=== PATIENT | male | born 1980 | race African-American/Black ===

== ENCOUNTER 2019-12-12 01:08 | Emergency (ER) | payer MEDICAID, OTHER ==
[~2019-12-12] VITALS: Ht 182.9 cm; Wt 90.7 kg
[2019-12-12 01:16] VITALS: BP 140/87
--- NOTE | 2019-12-12 01:17 | NUR ---
ED Nurse Note: walked in to ed c/o mid abd pain onset 3 days ago after eating salmon. states emesis x2 today. denies fever or chills. denies diarrhea. vss, nad, aaox4, ambulatory
[2019-12-12] MEDS ORDERED: Lidocaine 2% Visc 15ml soln ORAL ONE (01:30)
[2019-12-12] MEDS ORDERED: Ketorolac 30mg Inj IV ONE (01:30)
[2019-12-12] MEDS ORDERED: Mylanta II UD 30ml ORAL ONE (01:30)
[2019-12-12] MEDS ORDERED: Dicyclomine HCl 10mg/5ml oral soln ORAL ONE (01:30)
[2019-12-12 01:56] LABS: BILIRUBIN, URINE NEGATIVE (NEGATIVE); GLUCOSE, URINE (UA) NEGATIVE (NEGATIVE); KETONES,URINE NEGATIVE (NEGATIVE); LEUKOCYTE ESTERASE ,URINE 2+ (NEGATIVE); NITRITE,URINE NEGATIVE (NEGATIVE); PH,URINE 6 (4.5-8.0); PROTEIN,URINE 1+ (NEGATIVE); UROBILINOGEN,URINE 1 MG/DL (0.0-1.0)
[2019-12-12 01:57] LABS: BASOPHILS % (AUTO) 1.7 % (0.0-2.0); EOSINOPHILS % (AUTO) 1.5 % (0.0-3.0); HEMATOCRIT 47.4 % (42.0-52.0); HEMOGLOBIN 16.7 G/DL (14.2-18.0); LYMPHOCYTES % (AUTO) 36.7 % (20.0-45.0); MEAN CORPUSCULAR VOLUME 92 FL (80-99); MONOCYTES % (AUTO) 8.7 % (1.0-10.0); NEUTROPHILS % (AUTO) 51.4 % (45.0-75.0); PLATELET COUNT 270 K/UL (150-450); RED BLOOD COUNT 5.14 M/UL (4.70-6.10); RED CELL DISTRIBUTION WIDTH 12.4 % (11.6-14.8); WHITE BLOOD COUNT 12.1 K/UL (4.8-10.8)
[2019-12-12 02:08] LABS: ANION GAP 7 mmol/L (5-15); BLOOD UREA NITROGEN 12 mg/dL (7-18); CARBON DIOXIDE 29 MMOL/L (21-32); CHLORIDE 98 MMOL/L (98-107); COLOR,URINE YELLOW; CREATININE 1.3 MG/DL (0.55-1.30); POTASSIUM 3.3 MMOL/L (3.5-5.1); SODIUM 134 MMOL/L (136-145)
[2019-12-12 02:09] LABS: APPEARANCE,URINE SLIGHTLY CLOUDY
[2019-12-12 02:12] LABS: ALANINE AMINOTRANSFERASE 24 U/L (12-78); ALBUMIN/GLOBULIN RATIO 1.1 (1.0-2.7); ALKALINE PHOSPHATASE 46 U/L (46-116); ASPARTATE AMINO TRANSFERASE 18 U/L (15-37); BILIRUBIN,TOTAL 0.5 MG/DL (0.2-1.0)
[2019-12-12] MEDS ORDERED: cefTRIAXone 1 GM in NS 55 ML IVPB ONE (02:45)
--- NOTE | 2019-12-12 02:45 | NUR ---
ED Nurse Note: Patient tolerating IV antibiotics well, will continue to monitor. Per patient request additional blanket rendered.
[2019-12-12] MEDS ORDERED: Morphine Sulfate 4mg/ml Inj (IV USE ONLY) IVP ONE (03:30)
[2019-12-12] MEDS ORDERED: FAMOTIDINE20 MG ORAL (04:11)
[2019-12-12] MEDS ORDERED: ACETAMINOPHEN-1 EAC1 ORAL (04:11)
[2019-12-12] MEDS ORDERED: CEPHALEXIN500 MG ORAL (04:11)
[2019-12-12 04:18] VITALS: BP 140/87
--- NOTE | 2019-12-12 04:18 | NUR ---
ER DISCHARGE NOTE: Patient is cleared to be discharged per ERMD, pt is aox4, on room air, with stable vital signs. pt was given dc and prescription instructions, pt was able to verbalize understanding, pt id band and iv site removed without complications. pt is able to ambulate with steady gait. pt took all belongings and departed to home via his girlfriend who is waiting in the lobby.
--- NOTE | 2019-12-12 05:05 | Emergency Room Report ---
History of Present Illness General Chief Complaint: Abdominal Pain Source: Patient Present Illness HPI 39-year-old male presents to ED complaining of abdominal pain and vomiting. Started 2 days ago. Pain is epigastric, dull, 7 out of 10, nonradiating. Notes nausea and vomiting. Denies diarrhea. Denies fevers or chills. No other aggravating relieving factors. Denies any other associated symptoms 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-19 Testing performed LUMBER STACKER: No Patient History Past Medical History: none Past Surgical History: none Pertinent Family History: none Social History: Denies: smoking, alcohol use, drug use Immunizations: UTD Reviewed Nursing Documentation: PMH: Agreed; PSxH: Agreed Nursing Documentation-PMH Past Medical History: No Stated History Review of Systems All Other Systems: negative except mentioned in HPI Physical Exam Vital Signs Date Time Temp Pulse Resp B/P (MAP) Pulse Ox O2 Delivery O2 Flow Rate FiO2 12/12/19 01:12 97.7 60 20 140/87 (104) 99 Room Air 12/12/19 01:16 99 Sp02 EP Interpretation: reviewed, normal General Appearance: no apparent distress, alert, GCS 15, non-toxic Head: normocephalic, atraumatic Eyes: bilateral eye normal inspection, bilateral eye PERRL ENT: hearing grossly normal, normal pharynx, no angioedema, normal voice Neck: full range of motion, supple/symm/no masses Respiratory: chest non-tender, lungs clear, normal breath sounds, speaking full sentences Cardiovascular #1: regular rate, rhythm, no edema Cardiovascular #2: 2+ carotid (R), 2+ carotid (L), 2+ radial (R), 2+ radial (L), 2+ dorsalis pedis (R), 2+ dorsalis pedis (L) Gastrointestinal: normal bowel sounds, non tender, soft, non-distended, no guarding, no rebound Rectal: deferred Genitourinary: normal inspection, no CVA tenderness Musculoskeletal: back normal, normal range of motion, gait/station normal, non- tender Neurologic: alert, motor strength/tone normal, oriented x3, sensory intact, responsive, speech normal Psychiatric: judgement/insight normal, memory normal, mood/affect normal, no suicidal/homicidal ideation Reflexes: 3+ bicep (R), 3+ bicep (L), 3+ tricep (R), 3+ tricep (L), 3+ knee (R), 3+ knee (L) Lymphatic: no adenopathy Medical Decision Making Diagnostic Impression: Primary Impression: UTI (urinary tract infection) Qualified Codes: N30.01 - Acute cystitis with hematuria Additional Impression: Gastritis Qualified Codes: K29.00 - Acute gastritis without bleeding ER Course Hospital Course 39-year-old M presents to ED with epigastric pain with N/V. differential diagnosis: gastritis, SBO, cholecystits Clinical course Patient placed on stretcher. On classroom monitor. After initial history and physical I ordered labs, IV fluids, meds Labs - minimal leukocytosis, no electrolyte abnormalities, LFTs normal, UA + bacteria Given additional pain meds. Given antibiotics. I discussed findings with patient. Abdomen soft. No guarding. Safe for discharge with close outpatient follow-up. I will provide referrals I feel this is a highly complex case requiring extensive working including EKG/Rhythm strip, Xray/CT/US, Blood/urine lab work, repeat exams while in ED, and administration of strong opiates/narcotics for pain control, admission to hospital or close patient follow up. Diagnosis - UTI, gastritis Stable and discharged to home with prescriptions for pepcid, tylenol #3, keflex. Followup with PMD. Return to ED if symptoms recur or worsen Laboratory Tests Test 12/12/19 01:41 White Blood Count 12.1 K/UL (4.8-10.8) H Red Blood Count 5.14 M/UL (4.70-6.10) Hemoglobin 16.7 G/DL (14.2-18.0) Hematocrit 47.4 % (42.0-52.0) Mean Corpuscular Volume 92 FL (80-99) Mean Corpuscular Hemoglobin 32.6 PG (27.0-31.0) H Mean Corpuscular Hemoglobin Concent 35.3 G/DL (32.0-36.0) Red Cell Distribution Width 12.4 % (11.6-14.8) Platelet Count 270 K/UL (150-450) Mean Platelet Volume 7.6 FL (6.5-10.1) Neutrophils (%) (Auto) 51.4 % (45.0-75.0) Lymphocytes (%) (Auto) 36.7 % (20.0-45.0) Monocytes (%) (Auto) 8.7 % (1.0-10.0) Eosinophils (%) (Auto) 1.5 % (0.0-3.0) Basophils (%) (Auto) 1.7 % (0.0-2.0) Urine Color Yellow Urine Appearance Slightly cloudy Urine pH 6 (4.5-8.0) Urine Specific Rawson 1.020 (1.005-1.035) Urine Protein 1+ (NEGATIVE) H Urine Glucose (UA) Negative (NEGATIVE) Urine Ketones Negative (NEGATIVE) Urine Blood 1+ (NEGATIVE) H Urine Nitrite Negative (NEGATIVE) Urine Bilirubin Negative (NEGATIVE) Urine Urobilinogen 1 MG/DL (0.0-1.0) H Urine Leukocyte Esterase 2+ (NEGATIVE) H Urine RBC 2-4 /HPF (0 - 0) H Urine WBC 40-60 /HPF (0 - 0) H Urine Squamous Epithelial Cells None /LPF (NONE/OCC) Urine Bacteria Few /HPF (NONE) Sodium Level 134 MMOL/L (136-145) L Potassium Level 3.3 MMOL/L (3.5-5.1) L Chloride Level 98 MMOL/L (98-107) Carbon Dioxide Level 29 MMOL/L (21-32) Anion Gap 7 mmol/L (5-15) Blood Urea Nitrogen 12 mg/dL (7-18) Creatinine 1.3 MG/DL (0.55-1.30) Estimat Glomerular Filtration Rate > 60 mL/min (>60) Glucose Level 114 MG/DL (74-106) H Calcium Level 9.0 MG/DL (8.5-10.1) Total Bilirubin 0.5 MG/DL (0.2-1.0) Aspartate Amino Transf (AST/SGOT) 18 U/L (15-37) Alanine Aminotransferase (ALT/SGPT) 24 U/L (12-78) Alkaline Phosphatase 46 U/L (46-116) Total Protein 7.6 G/DL (6.4-8.2) Albumin 4.0 G/DL (3.4-5.0) Globulin 3.6 g/dL Albumin/Globulin Ratio 1.1 (1.0-2.7) Lipase 93 U/L (73-393) Last Vital Signs Date Time Temp Pulse Resp B/P (MAP) Pulse Ox O2 Delivery O2 Flow Rate FiO2 12/12/19 04:18 97.7 60 20 140/87 99 Room Air 99 Status: improved Disposition: HOME, SELF-CARE Condition: Stable Scripts Famotidine* (Pepcid 20mg tablet*) 20 Mg Tablet 20 MG ORAL DAILY for Gerd, #30 TAB 0 Refills Prov: Slim hCurch MD 12/12/19 Acetaminophen With Codeine (T#3) (TYLENOL #3 TAB*) Y Tab 1 TAB ORAL Q8H PRN for For Pain, #12 TAB Prov: Slim Church MD 12/12/19 Cephalexin* (KEFLEX*) 500 Mg Capsule 500 MG ORAL EVERY 6 HOURS for 7 Days, CAP Prov: Slim Church MD 12/12/19 Referrals: NON PHYSICIAN (PCP) [facility] Patient Instructions: Hematuria, Adult Slim Church MD Dec 12, 2019 05:05
== END 2019-12-12 04:18 | disposition home or self-care (01) ==
LOC: EMR 01:21
DX: N30.01 Acute cystitis with hematuria (principal); K29.00 Acute gastritis without bleeding; D72.829 Elevated white blood cell count, unspecified
CPT/HCPCS: 36415; 80053; 81003; 83690; 85025; 87086; 96361; 96365; 96375; J0696; J1885; J2270; J2405; J7030; S0028; Z7502; 99284

== ENCOUNTER 2019-12-17 12:26 | Emergency (ER) | payer OTHER ==
[~2019-12-17] VITALS: Ht 182.9 cm; Wt 90.7 kg
[~2019-12-17 12:26] MED LIST: ACETAMINOPHEN-1 EAC1 ORAL; CEPHALEXIN500 MG ORAL; FAMOTIDINE20 MG ORAL
--- NOTE | 2019-12-17 12:45 | NUR ---
ED Nurse Note: PT. WAS SEEN HERE ON OCT4 FOR UTI. PER PT. HE HAS ABD PAIN AND HE THINKS IT IS UTI. OTHER URINARY S/S REPORTED HEAVENLY. PT IS AOX4, CALM AND COOPERATIVE TO CARE; VSS, ON RA, AFEBRILE ON TRAIGE.
[2019-12-17] MEDS ORDERED: cefTRIAXone 1 GM in NS 55 ML IVPB ONE (13:00)
[2019-12-17] MEDS ORDERED: HYDROmorphone 1mg/ml Carpuject IM ONE (13:00)
[2019-12-17] MEDS ORDERED: DiphenhydrAMINE 50mg/ml Inj IM ONE (13:00)
[2019-12-17] MEDS ORDERED: Haloperidol 5mg/ml Inj IM ONE (13:00)
[2019-12-17 13:13] VITALS: BP 157/82
--- NOTE | 2019-12-17 14:23 | Emergency Room Report ---
History of Present Illness General Chief Complaint: Male Urogenital Problems Source: Patient Present Illness HPI 39-year-old male recently diagnosed with UTI currently on Keflex and, presents with vague abdominal discomfort, after utilizing marijuana severity is moderate, constant patient endorses nausea feeling vomitus no diarrhea no chest pain or shortness of breath, aggravating factors appear to be marijuana no alleviating factors patient is requesting a pain shot patient presents for evaluation and treatment patient states he was dropped off by his brother 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-19 Testing performed CUSTOM DECORATING CONSULTANT: No Patient History Past Medical History: see triage record Social History: Reports: drug use - Marijuana Reviewed Nursing Documentation: PMH: Agreed; PSxH: Agreed Nursing Documentation-PMH Past Medical History: No Stated History Review of Systems All Other Systems: negative except mentioned in HPI Physical Exam Vital Signs Date Time Temp Pulse Resp B/P (MAP) Pulse Ox O2 Delivery O2 Flow Rate FiO2 12/17/19 12:31 98.2 54 19 157/82 (107) 96 Room Air General Appearance: well appearing, no apparent distress Head: normocephalic, atraumatic ENT: hearing grossly normal, normal voice Neck: full range of motion, supple Respiratory: no respiratory distress, speaking full sentences Gastrointestinal: non tender, soft, no guarding, no rebound Neurologic: alert, normal gait Psychiatric: mood/affect normal Skin: no rash Medical Decision Making Diagnostic Impression: Primary Impression: Cannabinoid hyperemesis syndrome ER Course 39-year-old male presents with abdominal discomfort differential includes cannabinoid hyperemesis syndrome, appendicitis, diverticulitis patient's abdomen soft nontender repeat abdominal exam 2:21 PM abdomen soft nontender Patient improved with hydromorphone IM, Benadryl, Haldol with significant improvement in his nausea Patient counseled about marijuana use Disposition home with return precautions follow-up with PCP Last Vital Signs Date Time Temp Pulse Resp B/P (MAP) Pulse Ox O2 Delivery O2 Flow Rate FiO2 12/17/19 13:13 98.2 19 157/82 96 Room Air 12/17/19 12:31 54 Disposition: HOME, SELF-CARE Condition: Stable Referrals: [facility]ERR[facility] ([facility]P) [facility] Patient Instructions: Cannabis Use Disorder Additional Instructions: The patient was provided with discharge instructions, notified to follow-up with a primary care doctor and or specialist in the next 24-48 hours, and to return to the ED if they have worsening of their symptoms. Please note that this report is being documented using DRAGON technology. This can lead to erroneous entry secondary to incorrect interpretation by the dictating instrument. Rubin Milligan MD Dec 17, 2019 14:22
[2019-12-17 14:33] VITALS: BP 148/80
--- NOTE | 2019-12-17 14:33 | NUR ---
ER DISCHARGE NOTE: Patient is cleared to be discharged per ERPA, pt is aox4, on room air, with stable vital signs. pt was given dc and prescription instructions, pt was able to verbalize understanding, pt id band removed. pt is able to ambulate with steady gait. pt took all belongings.
== END 2019-12-17 14:33 | disposition home or self-care (01) ==
LOC: EMR 12:45
DX: R11.10 Vomiting, unspecified (principal); F12.90 Cannabis use, unspecified, uncomplicated
CPT/HCPCS: 96372; 96374; J1170; J1200; J1630; Z7502; 99284

== ENCOUNTER 2019-12-20 14:28 | Emergency (ER) | payer OTHER ==
[~2019-12-20] VITALS: Ht 182.9 cm; Wt 90.7 kg
[2019-12-20] MEDS ORDERED: Ketorolac 30mg Inj IV ONE (14:45)
--- NOTE | 2019-12-20 14:45 | NUR ---
ED Nurse Note: Patient walked in to Er from home with abdominal pain and nausea for 1 week. AAO x4, VSS at this time, IV access was established on left AC 20 ga, blood collected sent to lab.
[2019-12-20] MEDS ORDERED: Omnipaque-300 100ml vial INJ PRN (15:45)
[2019-12-20 16:16] LABS: BASOPHILS % (AUTO) 0.9 % (0.0-2.0); EOSINOPHILS % (AUTO) 0.2 % (0.0-3.0); HEMATOCRIT 52.7 % (42.0-52.0); HEMOGLOBIN 17.9 G/DL (14.2-18.0); LYMPHOCYTES % (AUTO) 15.7 % (20.0-45.0); MEAN CORPUSCULAR VOLUME 96 FL (80-99); MONOCYTES % (AUTO) 4.6 % (1.0-10.0); NEUTROPHILS % (AUTO) 78.6 % (45.0-75.0); PLATELET COUNT 258 K/UL (150-450); RED BLOOD COUNT 5.48 M/UL (4.70-6.10); RED CELL DISTRIBUTION WIDTH 11.8 % (11.6-14.8)
[2019-12-20 16:23] LABS: APPEARANCE,URINE VERY CLOUDY; BILIRUBIN, URINE NEGATIVE (NEGATIVE); GLUCOSE, URINE (UA) NEGATIVE (NEGATIVE); KETONES,URINE 1+ (NEGATIVE); LEUKOCYTE ESTERASE ,URINE 1+ (NEGATIVE); NITRITE,URINE NEGATIVE (NEGATIVE); PH,URINE 8 (4.5-8.0); PROTEIN,URINE 2+ (NEGATIVE); UROBILINOGEN,URINE NORMAL MG/DL (0.0-1.0)
[2019-12-20 16:25] LABS: COLOR,URINE YELLOW
[2019-12-20 16:35] LABS: ANION GAP 10 mmol/L (5-15); BLOOD UREA NITROGEN 11 mg/dL (7-18); CALCIUM 9.5 MG/DL (8.5-10.1); CARBON DIOXIDE 25 MMOL/L (21-32); CHLORIDE 100 MMOL/L (98-107); CREATININE 1.2 MG/DL (0.55-1.30); POTASSIUM 4.3 MMOL/L (3.5-5.1); SODIUM 135 MMOL/L (136-145)
[2019-12-20 16:39] LABS: ALANINE AMINOTRANSFERASE 24 U/L (12-78); ALBUMIN 4.3 G/DL (3.4-5.0); ALBUMIN/GLOBULIN RATIO 1.3 (1.0-2.7); ALKALINE PHOSPHATASE 43 U/L (46-116); ASPARTATE AMINO TRANSFERASE 22 U/L (15-37); BILIRUBIN,TOTAL 0.5 MG/DL (0.2-1.0)
[2019-12-20 17:34] VITALS: BP 125/68
--- NOTE | 2019-12-20 17:44 | Diagnostic Imaging Report ---
EXAM: CT Abdomen and Pelvis With Intravenous Contrast CLINICAL HISTORY: PAIN TECHNIQUE: Axial computed tomography images of the abdomen and pelvis with intravenous contrast. CTDI is 4.60 mGy and DLP is 237.80 mGy-cm. One or more of the following dose reduction techniques were used: automated exposure control, adjustment of the mA and/or kV according to patient size, use of iterative reconstruction technique. COMPARISON: None FINDINGS: Lung bases: Unremarkable. No mass. No consolidation. ABDOMEN: Liver: Unremarkable. No mass. Gallbladder and bile ducts: Unremarkable. No calcified stones. No ductal dilation. Pancreas: Unremarkable. No mass. No ductal dilation. Spleen: Unremarkable. No splenomegaly. Adrenals: Unremarkable. No mass. Kidneys and ureters: No hydronephrosis or obstructing stone. Stomach and bowel: Evaluation of the stomach is limited by under distention. Gastritis is not excluded. Prominence of the mullen of the small bowel may be secondary to under distention. Enteritis is not excluded in the appropriate clinical setting. PELVIS: Appendix: Normal appendix. Bladder: Unremarkable. No mass. Reproductive: Unremarkable as visualized. ABDOMEN and PELVIS: Intraperitoneal space: Unremarkable. No free air. No significant fluid collection. Bones/joints: No acute fracture. No dislocation. Soft tissues: Unremarkable. Vasculature: Unremarkable. No abdominal aortic aneurysm. Lymph nodes: Unremarkable. No enlarged lymph nodes. IMPRESSION: 1. Evaluation of the stomach is limited by under distention. Gastritis is not excluded. 2. Prominence of the mullen of the small bowel may be secondary to under distention. Enteritis is not excluded in the appropriate clinical setting. 3. No other acute abnormality in the abdomen or pelvis.
--- NOTE | 2019-12-20 17:57 | Emergency Room Report ---
History of Present Illness General Chief Complaint: Abdominal Pain Source: Patient Present Illness HPI 39-year-old male with history of recurrences of vomiting due to cannabis hyperemesis here complaining of worsening vomiting today. Patient was seen in the ER twice in the past, was diagnosed with cannabis hyperemesis and was told to stop smoking marijuana he reports that he has not smoked marijuana in the p ast 2 days. Patient reports that he has vomited 3 times today without any blood in vomit. Denies any abdominal pain, diarrhea, constipation chest pain shortness of breath. Reports that he feels very flocculent. Patient did not have any vomiting episode in the ED. Denies any fever and chills, vital signs are within normal limits. Denies headache and dizziness. Patient keeps saying that he keeps coming back here because he feels like" nothing was done for his vomiting." If he has a primary doctor to follow-up with he said that he would rather come back here for follow-up. Denies any tobacco smoking or alcohol intake. 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-19 Testing performed PROBATE JUDGE: No COVID-19 Screening: Negative COVID-19 Patient History Past Medical History: see triage record Past Surgical History: none Pertinent Family History: none Immunizations: UTD Reviewed Nursing Documentation: PMH: Agreed; PSxH: Agreed Nursing Documentation-PMH Past Medical History: No Stated History Review of Systems All Other Systems: negative except mentioned in HPI Physical Exam Vital Signs Date Time Temp Pulse Resp B/P (MAP) Pulse Ox O2 Delivery O2 Flow Rate FiO2 12/20/19 14:32 98.1 58 17 122/64 (83) 99 Room Air Sp02 EP Interpretation: reviewed, normal General Appearance: no apparent distress, alert, GCS 15, non-toxic Head: normocephalic, atraumatic Eyes: bilateral eye normal inspection, bilateral eye PERRL ENT: hearing grossly normal, normal pharynx, no angioedema, normal voice Neck: full range of motion, supple/symm/no masses Respiratory: chest non-tender, lungs clear, normal breath sounds, speaking full sentences Cardiovascular #1: regular rate, rhythm, no edema Gastrointestinal: normal bowel sounds, non tender, soft, no mass, no organomegaly, no peritonitis, no bruit, non-distended, no guarding, no rebound Rectal: deferred Genitourinary: no CVA tenderness Musculoskeletal: back normal Neurologic: alert, motor strength/tone normal, oriented x3, sensory intact, responsive, speech normal Psychiatric: judgement/insight normal, memory normal, mood/affect normal, no suicidal/homicidal ideation Skin: no rash Lymphatic: no adenopathy Medical Decision Making PA Attestation All my diagnosis and treatment plans were reviewed ad discussed with my supervising physician Dr. Church Diagnostic Impression: Primary Impression: Cannabinoid hyperemesis syndrome Additional Impressions: Nausea & vomiting Constipation ER Course 39-year-old male with history of recurrences of vomiting due to cannabis hyperemesis here complaining of worsening vomiting today. Patient was seen in the ER twice in the past, was diagnosed with cannabis hyperemesis and was told to stop smoking marijuana he reports that he has not smoked marijuana in the past 2 days. Patient reports that he has vomited 3 times today without any blood in vomit. Denies any abdominal pain, diarrhea, constipation chest pain shortness of breath. Reports that he feels very flocculent. Patient did not have any vomiting episode in the ED. Denies any fever and chills, vital signs are within normal limits. Denies headache and dizziness. Patient keeps saying that he keeps coming back here because he feels like" nothing was done for his vomiting." If he has a primary doctor to follow-up with he said that he would rather come back here for follow-up. Denies any tobacco smoking or alcohol intake. Ddx considered but are not limited to: appendicitis, cholecystis, gastritis, gastroenteritis, UTI, pyelonephritis, SBO, diverticulitis, influenza with GI manifestation, pancreatitis, cannabis hyperemesis Vital signs: are WNL, pt. is afebrile H&PE are most consistent with: Cannabis hyperemesis, nausea vomiting, constipation ORDERS: abdominal CT, abdominal pain set, lactulose, Colace, Phenergan, pantoprazole ED INTERVENTIONS: NS bolus, Toradol, Zofran, Pepcid DISCHARGE: At this time pt. is stable for d/c to home. Will provide printed patient care instructions, and any necessary prescriptions. Care plan and follow up instructions have been discussed with the patient prior to discharge. Take medication of Zyrtec, or using marijuana, follow primary doctor, I gave patient a list of clinics to follow-up with, referral to percussion teacher may be needed upon request of her primary doctor. If worsening symptoms return to the emergency room CT/MRI/US Diagnostic Results CT/MRI/US Diagnostic Results : Imaging Test Ordered: CT abdomen pelvis with contrast Impression FINDINGS: Lung bases: Unremarkable. No mass. No consolidation. ABDOMEN: Liver: Unremarkable. No mass. Gallbladder and bile ducts: Unremarkable. No calcified stones. No ductal dilation. Pancreas: Unremarkable. No mass. No ductal dilation. Spleen: Unremarkable. No splenomegaly. Adrenals: Unremarkable. No mass. Kidneys and ureters: No hydronephrosis or obstructing stone. Stomach and bowel: Evaluation of the stomach is limited by under distention. Gastritis is not excluded. Prominence of the mullen of the small bowel may be secondary to under distention. Enteritis is not excluded in the appropriate clinical setting. PELVIS: Appendix: Normal appendix. Bladder: Unremarkable. No mass. Reproductive: Unremarkable as visualized. ABDOMEN and PELVIS: Intraperitoneal space: Unremarkable. No free air. No significant fluid collection. Bones/joints: No acute fracture. No dislocation. Soft tissues: Unremarkable. Vasculature: Unremarkable. No abdominal aortic aneurysm. Lymph nodes: Unremarkable. No enlarged lymph nodes. IMPRESSION: 1. Evaluation of the stomach is limited by under distention. Gastritis is not excluded. 2. Prominence of the mullen of the small bowel may be secondary to under distention. Enteritis is not excluded in the appropriate clinical setting. 3. No other acute abnormality in the abdomen or pelvis. Last Vital Signs Date Time Temp Pulse Resp B/P (MAP) Pulse Ox O2 Delivery O2 Flow Rate FiO2 12/20/19 17:34 60 17 Room Air 12/20/19 17:34 98.1 125/68 99 Disposition: HOME, SELF-CARE Condition: Stable Scripts Docusate Sodium* (COLACE*) 100 Mg Capsule 100 MG ORAL DAILY, #14 CAP Prov: Vika Warner 12/20/19 Lactulose (LACTULOSE*) 20 Gm/30 Ml Solution 15 ML ORAL BID, #200 ML 0 Refills Prov: Vika Warner 12/20/19 Pantoprazole* (PANTOPRAZOLE*) 40 Mg Tablet. 40 MG ORAL DAILY for Gerd, #30 TAB Prov: Vika Warner 12/20/19 Promethazine Hcl* (PHENERGAN*) 25 Mg Tablet 25 MG ORAL Q6H, #15 TAB 0 Refills Prov: Vika Warner 12/20/19 Referrals: NON PHYSICIAN (PCP) Patient Instructions: Abdominal Pain, Adult, Constipation, Adult, [id number], Nausea and Vomiting, Adult Additional Instructions: Take medication as been directed, follow-up primary care provider for referral to percussion teacher, if worsening symptoms return to the emergency room Vika Warner Dec 20, 2019 17:57
[2019-12-20] MEDS ORDERED: COLACE100 MG ORAL (17:58)
[2019-12-20] MEDS ORDERED: PHENERGAN25 M1 ORAL (17:58)
[2019-12-20] MEDS ORDERED: PANTOPRAZOLE SO40 MG ORAL (17:58)
[2019-12-20] MEDS ORDERED: LACTULOSE20 GM/301 ORAL (17:58)
[2019-12-20 18:20] VITALS: BP 125/68
--- NOTE | 2019-12-20 18:22 | NUR ---
ER DISCHARGE NOTE: Patient is cleared to be discharged per ERMD, pt is aox4, on room air, with stable vital signs. pt was given dc and prescription instructions, pt was able to verbalize understanding, pt id band and iv site removed without complications. pt is able to ambulate with steady gait. pt took all belongings.
== END 2019-12-20 18:22 | disposition home or self-care (01) ==
LOC: EMR 14:45
DX: R11.10 Vomiting, unspecified (principal); F12.90 Cannabis use, unspecified, uncomplicated; R11.2 Nausea with vomiting, unspecified; K59.00 Constipation, unspecified
CPT/HCPCS: 36415; 74177; 80053; 80307; 81003; 83690; 85025; 87086; 96361; 96374; 96375; G0480; J1885; J2550; J7030; Q9965; S0028; Z7502; 99284

== ENCOUNTER 2020-03-25 12:05 | Emergency (ER) | payer OTHER ==
[~2020-03-25] VITALS: Ht 182.9 cm; Wt 90.7 kg
[~2020-03-25 12:05] MED LIST changes: +COLACE100 MG ORAL; +LACTULOSE20 GM/301 ORAL; +PANTOPRAZOLE SO40 MG ORAL; +PHENERGAN25 M1 ORAL
[2020-03-25 12:30] VITALS: BP 139/82
[2020-03-25] MEDS ORDERED: Morphine Sulfate 4mg/ml Inj (IV USE ONLY) IVP ONE (12:30)
[2020-03-25] MEDS ORDERED: DiphenhydrAMINE 50mg/ml Inj IVP ONE (12:30)
[2020-03-25] MEDS ORDERED: Metoclopramide 10mg/2ml Inj IVP ONE (12:30)
--- NOTE | 2020-03-25 12:30 | NUR ---
ED Nurse Note: Pt walked in from home c/o abd pain x 5 days with N/V. Denies diarrhea or urinary symptoms. Pt reports vomit as yellow color. Respirations even and unlabored on room air. Vitals stable as documented. A+Ox4, speaking in complete sentences.
[2020-03-25 12:49] LABS: APPEARANCE,URINE CLEAR; BILIRUBIN, URINE NEGATIVE (NEGATIVE); GLUCOSE, URINE (UA) NEGATIVE (NEGATIVE); KETONES,URINE 1+ (NEGATIVE); LEUKOCYTE ESTERASE ,URINE 1+ (NEGATIVE); NITRITE,URINE NEGATIVE (NEGATIVE); PH,URINE 6 (4.5-8.0); PROTEIN,URINE 2+ (NEGATIVE); UROBILINOGEN,URINE 1 MG/DL (0.0-1.0)
[2020-03-25 12:52] LABS: BASOPHILS % (AUTO) 1.2 % (0.0-2.0); EOSINOPHILS % (AUTO) 0.9 % (0.0-3.0); HEMATOCRIT 54.3 % (42.0-52.0); LYMPHOCYTES % (AUTO) 23.8 % (20.0-45.0); MEAN CORPUSCULAR VOLUME 94 FL (80-99); MONOCYTES % (AUTO) 7.9 % (1.0-10.0); NEUTROPHILS % (AUTO) 66.2 % (45.0-75.0); PLATELET COUNT 276 K/UL (150-450); RED BLOOD COUNT 5.77 M/UL (4.70-6.10); WHITE BLOOD COUNT 14.7 K/UL (4.8-10.8)
[2020-03-25 12:53] LABS: ANION GAP 10 mmol/L (5-15); BLOOD UREA NITROGEN 17 mg/dL (7-18); CALCIUM 9.5 MG/DL (8.5-10.1); CARBON DIOXIDE 26 MMOL/L (21-32); CHLORIDE 97 MMOL/L (98-107); CREATININE 1.3 MG/DL (0.55-1.30); HEMOGLOBIN 18.1 G/DL (14.2-18.0); POTASSIUM 3.7 MMOL/L (3.5-5.1); SODIUM 133 MMOL/L (136-145)
--- NOTE | 2020-03-25 12:56 | Emergency Room Report ---
History of Present Illness General Chief Complaint: Abdominal Pain Source: Patient Present Illness HPI Patient presents with several days of nausea vomiting and epigastric pain. He cannot keep anything down. He is vomiting up yellow bile without any blood or coffee grounds. Denies any diarrhea. The pain is epigastric and severe. The pain does not radiate. He tried taking Kaopectate but vomited this back up. It did not help the pain. He denies daily alcohol consumption but did drink alcohol last Friday. He denies fevers or chills. He had this several months ago and was told he had a UTI. Patient uses THC recreationally. Last 2 visits dx = cannabis hyperemesis syndrome. Patient denies exposure to Covid positive contacts. No sore throat, chest pain, palpitations, dysuria, shortness of breath, joint pain, rashes, depression, anxiety, visual changes, dizziness, headache. 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 Nursing Documentation: PMH: Agreed; PSxH: Agreed Nursing Documentation-PMH Past Medical History: No Stated History Review of Systems All Other Systems: negative except mentioned in HPI Physical Exam Vital Signs Date Time Temp Pulse Resp B/P (MAP) Pulse Ox O2 Delivery O2 Flow Rate FiO2 03/25/20 12:10 57 18 141/87 (105) 95 Room Air Sp02 EP Interpretation: reviewed, normal General Appearance: well appearing, no apparent distress, GCS 15, non-toxic Head: normocephalic Eyes: bilateral eye normal inspection, bilateral eye PERRL, bilateral eye EOMI ENT: moist mucus membranes Neck: supple Respiratory: lungs clear, normal breath sounds Cardiovascular #1: regular rate, rhythm Cardiovascular #2: 2+ radial (R) Gastrointestinal: normal inspection, normal bowel sounds, no mass, non- distended, no guarding, no rebound, tenderness - Epigastric Genitourinary: no CVA tenderness Musculoskeletal: back normal, normal range of motion, gait/station normal Neurologic: alert, oriented x3, grossly normal Psychiatric: mood/affect normal Skin: no rash, warm/dry Medical Decision Making Diagnostic Impression: Primary Impression: Nausea & vomiting Qualified Codes: R11.14 - Bilious vomiting Additional Impressions: Gastritis Qualified Codes: K29.00 - Acute gastritis without bleeding Elevated hemoglobin ER Course Patient presents with nausea vomiting and epigastric pain unable to keep anything down. Differential includes acute myocardial infarction, gastritis, pancreatitis, peptic ulcer disease, cannabis hyperemesis syndrome amongst others. Patient evaluated with EKG and labs. Patient placed on a night monitor. Patient treated with IV hydration, Pepcid, Reglan Benadryl and a small dose of morphine. Lab reports elevated hemoglobin. IV hydration had been ordered. White count elevated. CMP unremarkable. Urinalysis clear. Tox screen positive for THC. Patient tolerating oral intake and says pain is 1/10 at this time. Abdomen is soft. Discussed results in most likely etiology of vomiting and epigastric pain. Discussed treatment plan with patient. Patient improved and stable for outpatient observation and treatment. Laboratory Tests Test 03/25/20 12:15 White Blood Count 14.7 K/UL (4.8-10.8) H Red Blood Count 5.77 M/UL (4.70-6.10) Hemoglobin 18.1 G/DL (14.2-18.0) *H Hematocrit 54.3 % (42.0-52.0) H Mean Corpuscular Volume 94 FL (80-99) Mean Corpuscular Hemoglobin 31.3 PG (27.0-31.0) H Mean Corpuscular Hemoglobin Concent 33.3 G/DL (32.0-36.0) Red Cell Distribution Width 12.0 % (11.6-14.8) Platelet Count 276 K/UL (150-450) Mean Platelet Volume 9.4 FL (6.5-10.1) Neutrophils (%) (Auto) 66.2 % (45.0-75.0) Lymphocytes (%) (Auto) 23.8 % (20.0-45.0) Monocytes (%) (Auto) 7.9 % (1.0-10.0) Eosinophils (%) (Auto) 0.9 % (0.0-3.0) Basophils (%) (Auto) 1.2 % (0.0-2.0) Prothrombin Time 12.7 SEC (9.30-11.50) H Prothrombin Time INR 1.2 (0.9-1.1) H Activated Partial Thromboplast Time 30 SEC (23-33) Urine Color Yellow Urine Appearance Clear Urine pH 6 (4.5-8.0) Urine Specific [place] 1.025 (1.005-1.035) Urine Protein 2+ (NEGATIVE) H Urine Glucose (UA) Negative (NEGATIVE) Urine Ketones 1+ (NEGATIVE) H Urine Blood 2+ (NEGATIVE) H Urine Nitrite Negative (NEGATIVE) Urine Bilirubin Negative (NEGATIVE) Urine Urobilinogen 1 MG/DL (0.0-1.0) H Urine Leukocyte Esterase 1+ (NEGATIVE) H Urine RBC 2-4 /HPF (0 - 0) H Urine WBC 5-10 /HPF (0 - 0) H Urine Squamous Epithelial Cells Occasional /LPF Urine Bacteria Moderate /HPF (NONE) H Sodium Level 133 MMOL/L (136-145) L Potassium Level 3.7 MMOL/L (3.5-5.1) Chloride Level 97 MMOL/L (98-107) L Carbon Dioxide Level 26 MMOL/L (21-32) Anion Gap 10 mmol/L (5-15) Blood Urea Nitrogen 17 mg/dL (7-18) Creatinine 1.3 MG/DL (0.55-1.30) Estimated Glomerular Filtration Rate > 60 mL/min (>60) Glucose Level 120 MG/DL (74-106) H Calcium Level 9.5 MG/DL (8.5-10.1) Total Bilirubin 1.1 MG/DL (0.2-1.0) H Direct Bilirubin 0.2 MG/DL (0.0-0.3) Aspartate Amino Transferase (AST) 27 U/L (15-37) Alanine Aminotransferase (ALT) 36 U/L (12-78) Alkaline Phosphatase 50 U/L (46-116) Total Creatine Kinase 460 U/L (26-308) H Troponin I 0.000 ng/mL (0.000-0.056) Total Protein 8.6 G/DL (6.4-8.2) H Albumin 4.4 G/DL (3.4-5.0) Globulin 4.2 g/dL Albumin/Globulin Ratio 1.0 (1.0-2.7) Lipase 92 U/L (73-393) EKG Diagnostic Results Rate: normal Rhythm: NSR ST Segments: no acute changes - Right axis deviation Rhythm Strip Diag. Results EP Interpretation: yes Rhythm: NSR, no PVC's, no ectopy Last Vital Signs Date Time Temp Pulse Resp B/P (MAP) Pulse Ox O2 Delivery O2 Flow Rate FiO2 03/25/20 14:50 97.8 63 18 131/86 99 Room Air Status: improved Disposition: HOME, SELF-CARE Condition: Improved Scripts Acetaminophen (Tylenol) 325 Mg Tablet 650 MG ORAL Q6H PRN for Prn Pain/Headache/Temp > 101, #20 TAB 0 Refills Prov: Brian Mahajan MD 03/25/20 Mag Hydrox/Aluminum Hyd/Simeth (Mylanta Maximum Strength Liq) 355 Ml Oral.susp 30 ML PO Q6HR, #240 ML Prov: Brian Mahajan MD 03/25/20 Famotidine* (Pepcid 20mg tablet*) 20 Mg Tablet 20 MG ORAL DAILY for prevent stomach pain, #30 TAB 0 Refills Prov: Brian Mahajan MD 03/25/20 Ondansetron Odt* (ZOFRAN ODT*) 4 Mg Tab.rapdis 4 MG BC EVERY 8 HOURS PRN for Nausea & Vomiting, #6 TAB 0 Refills Prov: Brian Mahajan MD 03/25/20 Referrals: [facility]ERR[facility] (PCP) Brian Mahajan MD Mar 25, 2020 12:56
[2020-03-25 12:59] LABS: COLOR,URINE YELLOW
[2020-03-25 13:00] LABS: INR 1.2 (0.9-1.1)
[2020-03-25 13:04] LABS: ALANINE AMINOTRANSFERASE 36 U/L (12-78); ALBUMIN 4.4 G/DL (3.4-5.0); ALKALINE PHOSPHATASE 50 U/L (46-116); ASPARTATE AMINO TRANSFERASE 27 U/L (15-37); BILIRUBIN,TOTAL 1.1 MG/DL (0.2-1.0); CREATINE KINASE 460 U/L (26-308)
[2020-03-25 13:05] LABS: BILIRUBIN,DIRECT 0.2 MG/DL (0.0-0.3)
[2020-03-25] MEDS ORDERED: MYLANTA MAXIMU355 ML PO (14:37)
[2020-03-25] MEDS ORDERED: FAMOTIDINE20 MG ORAL (14:37)
[2020-03-25] MEDS ORDERED: ONDANSETRON ODT4 MG BC (14:37)
[2020-03-25] MEDS ORDERED: TYLENOL325 MG ORAL (14:37)
[2020-03-25 14:50] VITALS: BP 131/86
--- NOTE | 2020-03-25 15:00 | NUR ---
ED Nurse Note: 25mg IV benadryl wasted per hospital protocol with Larisa Harris RN
[2020-03-26] MEDS ORDERED: ACETAMINOPHEN-1 EAC1 ORAL (18:27)
== END 2020-03-25 14:50 | disposition home or self-care (01) ==
LOC: EMR 12:20
DX: R11.14 Bilious vomiting (principal); K29.00 Acute gastritis without bleeding; R79.89 Other specified abnormal findings of blood chemistry; F12.90 Cannabis use, unspecified, uncomplicated
CPT/HCPCS: 36415; 80053; 81003; 82248; 82550; 83690; 84484; 85025; 85610; 85730; 87086; 93005; 96361; 96374; 96375; J1200; J2270; J2765; S0028; Z7502; 99284

== ENCOUNTER 2020-03-26 17:13 | Emergency (ER) | payer OTHER ==
[~2020-03-26] VITALS: Ht 182.9 cm; Wt 90.7 kg
[~2020-03-26 17:13] MED LIST changes: +MYLANTA MAXIMU355 ML PO; +ONDANSETRON ODT4 MG BC; +TYLENOL325 MG ORAL
[2020-03-26 17:19] VITALS: BP 138/89
--- NOTE | 2020-03-26 17:28 | NUR ---
ED Nurse Note: Patient from home and walked in due to continuous abd pain. Pt was seen here yesterday for abd pain and N/V and was prescribed with meds. Pt states he is still having abd pain and vomiting after he took his meds. Pt is AAO x4 and ambulatory.
[2020-03-26] MEDS ORDERED: Ketorolac 30mg Inj IV ONE (17:30)
[2020-03-26 17:49] LABS: EOSINOPHILS % (AUTO) 0.2 % (0.0-3.0); LYMPHOCYTES % (AUTO) 16.7 % (20.0-45.0); MEAN CORPUSCULAR VOLUME 94 FL (80-99); MONOCYTES % (AUTO) 5.8 % (1.0-10.0); NEUTROPHILS % (AUTO) 76.3 % (45.0-75.0); PLATELET COUNT 273 K/UL (150-450); RED BLOOD COUNT 5.34 M/UL (4.70-6.10); RED CELL DISTRIBUTION WIDTH 11.9 % (11.6-14.8); WHITE BLOOD COUNT 11.3 K/UL (4.8-10.8)
[2020-03-26 17:55] LABS: ANION GAP 10 mmol/L (5-15); BLOOD UREA NITROGEN 15 mg/dL (7-18); CALCIUM 9.3 MG/DL (8.5-10.1); CARBON DIOXIDE 27 MMOL/L (21-32); CHLORIDE 97 MMOL/L (98-107); CREATININE 1.4 MG/DL (0.55-1.30); POTASSIUM 3.8 MMOL/L (3.5-5.1); SODIUM 134 MMOL/L (136-145)
--- NOTE | 2020-03-26 17:56 | Emergency Room Report ---
History of Present Illness General Chief Complaint: Abdominal Pain Source: Patient Present Illness HPI 39-year-old male presents with abdominal pain nausea and vomiting. Was seen here yesterday for similar symptoms. Was treated and discharged. States he attempted taking the medications today but states he still been having abdominal pain and vomiting. Dull, 6 out of 10, nonradiating. Has been seen here m ultiple times for this in the past. History of THC use. Denies any other alcohol or drug use. No other aggravating relieving factors. 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 Patient History Past Medical History: none Past Surgical History: none Pertinent Family History: none Social History: Denies: smoking, alcohol use, drug use Immunizations: UTD Reviewed Nursing Documentation: PMH: Agreed; PSxH: Agreed Nursing Documentation-PMH Past Medical History: No Stated History Review of Systems All Other Systems: negative except mentioned in HPI Physical Exam Vital Signs Date Time Temp Pulse Resp B/P (MAP) Pulse Ox O2 Delivery O2 Flow Rate FiO2 03/26/20 17:19 98.4 57 20 138/89 98 Room Air Sp02 EP Interpretation: reviewed, normal General Appearance: no apparent distress, alert, GCS 15, non-toxic Head: normocephalic, atraumatic Eyes: bilateral eye normal inspection, bilateral eye PERRL ENT: hearing grossly normal, normal pharynx, no angioedema, normal voice Neck: full range of motion, supple/symm/no masses Respiratory: chest non-tender, lungs clear, normal breath sounds, speaking full sentences Cardiovascular #1: regular rate, rhythm, no edema Cardiovascular #2: 2+ carotid (R), 2+ carotid (L), 2+ radial (R), 2+ radial (L), 2+ dorsalis pedis (R), 2+ dorsalis pedis (L) Gastrointestinal: normal bowel sounds, non tender, soft, non-distended, no guarding, no rebound Rectal: deferred Genitourinary: normal inspection, no CVA tenderness Musculoskeletal: back normal, normal range of motion, gait/station normal, non- tender Neurologic: alert, motor strength/tone normal, oriented x3, sensory intact, responsive, speech normal Psychiatric: judgement/insight normal, memory normal, mood/affect normal, no suicidal/homicidal ideation Reflexes: 3+ bicep (R), 3+ bicep (L), 3+ tricep (R), 3+ tricep (L), 3+ knee (R), 3+ knee (L) Lymphatic: no adenopathy Medical Decision Making Diagnostic Impression: Primary Impression: Gastritis Qualified Codes: K29.00 - Acute gastritis without bleeding Additional Impression: Cannabinoid hyperemesis syndrome ER Course Hospital Course 39-year-old M presents to ED with epigastric pain with N/V. differential diagnosis: gastritis, SBO, cholecystits Clinical course Patient placed on stretcher. On strip roller. After initial history and physical I ordered labs, IV fluids, pepcid, pain meds Labs - no leukocytosis, no electrolyte abnormalities, LFTs normal, Reviewed EMR. Seen here yesterday for similar presentation. THC positive. Has been seen here previously for episodes of cyclical vomiting. Encouraged to limit THC use. Abdomen soft. No guarding or rebound. I see no reason for imaging. Safe for discharge close outpatient follow-up I feel this is a highly complex case requiring extensive working including EKG/Rhythm strip, Xray/CT/US, Blood/urine lab work, repeat exams while in ED, and administration of strong opiates/narcotics for pain control, admission to hospital or close patient follow up. Diagnosis - gastritis, cannabinoid hyperemesis syndrome Stable and discharged to home with prescriptions for tylenol #3. Continue previously prescribed medications as directed. Followup with PMD. Return to ED if symptoms recur or worsen Labs Test 03/26/20 17:35 White Blood Count 11.3 K/UL (4.8-10.8) Red Blood Count 5.34 M/UL (4.70-6.10) Hemoglobin 17.0 G/DL (14.2-18.0) Hematocrit 50.0 % (42.0-52.0) Mean Corpuscular Volume 94 FL (80-99) Mean Corpuscular Hemoglobin 31.9 PG (27.0-31.0) Mean Corpuscular Hemoglobin Concent 34.0 G/DL (32.0-36.0) Red Cell Distribution Width 11.9 % (11.6-14.8) Platelet Count 273 K/UL (150-450) Mean Platelet Volume 8.5 FL (6.5-10.1) Neutrophils (%) (Auto) 76.3 % (45.0-75.0) Lymphocytes (%) (Auto) 16.7 % (20.0-45.0) Monocytes (%) (Auto) 5.8 % (1.0-10.0) Eosinophils (%) (Auto) 0.2 % (0.0-3.0) Basophils (%) (Auto) 1.0 % (0.0-2.0) Sodium Level 134 MMOL/L (136-145) Potassium Level 3.8 MMOL/L (3.5-5.1) Chloride Level 97 MMOL/L (98-107) Carbon Dioxide Level 27 MMOL/L (21-32) Anion Gap 10 mmol/L (5-15) Blood Urea Nitrogen 15 mg/dL (7-18) Creatinine 1.4 MG/DL (0.55-1.30) Estimat Glomerular Filtration Rate > 60 mL/min (>60) Glucose Level 111 MG/DL (74-106) Calcium Level 9.3 MG/DL (8.5-10.1) Total Bilirubin 1.1 MG/DL (0.2-1.0) Direct Bilirubin 0.2 MG/DL (0.0-0.3) Aspartate Amino Transf (AST/SGOT) 28 U/L (15-37) Alanine Aminotransferase (ALT/SGPT) 36 U/L (12-78) Alkaline Phosphatase 51 U/L (46-116) Total Protein 8.2 G/DL (6.4-8.2) Albumin 4.4 G/DL (3.4-5.0) Globulin 3.8 g/dL Albumin/Globulin Ratio 1.2 (1.0-2.7) Lipase 93 U/L (73-393) Last Vital Signs Date Time Temp Pulse Resp B/P (MAP) Pulse Ox O2 Delivery O2 Flow Rate FiO2 03/26/20 17:26 57 20 Room Air 03/26/20 17:19 98.4 138/89 (105) 98 Status: improved Disposition: HOME, SELF-CARE Condition: Stable Scripts Acetaminophen With Codeine (T#3) (TYLENOL #3 TAB*) Y Tab 1 TAB ORAL Q8H PRN for For Pain, #12 TAB Prov: Slim Church MD 03/26/20 Referrals: NON PHYSICIAN (PCP) Slim Church MD Mar 26, 2020 17:56
[2020-03-26 18:05] LABS: ALANINE AMINOTRANSFERASE 36 U/L (12-78); ALBUMIN 4.4 G/DL (3.4-5.0); ALBUMIN/GLOBULIN RATIO 1.2 (1.0-2.7); ALKALINE PHOSPHATASE 51 U/L (46-116); ASPARTATE AMINO TRANSFERASE 28 U/L (15-37); BILIRUBIN,TOTAL 1.1 MG/DL (0.2-1.0)
[2020-03-26 18:13] LABS: BILIRUBIN,DIRECT 0.2 MG/DL (0.0-0.3)
[2020-03-26] MEDS ORDERED: ACETAMINOPHEN-1 EAC1 ORAL (18:27)
[2020-03-26] MEDS ORDERED: Morphine Sulfate 4mg/ml Inj (IV USE ONLY) IVP ONE (18:30)
[2020-03-26 18:56] VITALS: BP 122/76
== END 2020-03-26 18:56 | disposition home or self-care (01) ==
LOC: EMR 17:32
DX: K29.00 Acute gastritis without bleeding (principal); R11.2 Nausea with vomiting, unspecified
CPT/HCPCS: 36415; 80053; 82248; 83690; 85025; 96361; 96374; 96375; J1885; J2270; J2405; J7030; S0028; Z7502; 99284

== ENCOUNTER 2020-05-13 09:45 | Emergency (ER) | payer OTHER ==
[~2020-05-13] VITALS: Ht 188 cm; Wt 95.3 kg
[2020-05-13] MEDS ORDERED: fentaNYL 100 mcg/2 mL IV ONE ×2 (10:15→12:30)
[2020-05-13] MEDS ORDERED: Pantoprazole Inj IVP ONE (10:15)
--- NOTE | 2020-05-13 10:16 | Emergency Room Report ---
History of Present Illness General Chief Complaint: Abdominal Pain Source: Patient Present Illness HPI Patient is a 39-year-old male denies any significant past medical history who presents to the ER complaining of abdominal pain, nausea and vomiting. Patient complains upper abdominal pain with nonbilious nonbloody vomitus for the past 2 days. He denies any fever or chills. He denies any dysuria or hematuria. He denies any diarrhea or constipation. He states he has had this in the past and he was told he has acid in his stomach. 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-19 Testing performed RELIABILITY SPECIALIST: No Patient History Reviewed Nursing Documentation: PMH: Agreed; PSxH: Agreed Nursing Documentation-PM Past Medical History: No Stated History Review of Systems All Other Systems: negative except mentioned in HPI Physical Exam Vital Signs Date Time Temp Pulse Resp B/P (MAP) Pulse Ox O2 Delivery O2 Flow Rate FiO2 05/13/20 10:00 98.1 56 18 146/80 (102) 97 Room Air Sp02 EP Interpretation: reviewed, normal General Appearance: alert, GCS 15, non-toxic, mild distress Head: normocephalic, atraumatic Eyes: bilateral eye normal inspection, bilateral eye PERRL ENT: hearing grossly normal, normal pharynx, no angioedema, normal voice Neck: full range of motion, supple/symm/no masses Respiratory: chest non-tender, no respiratory distress, no accessory muscle use Cardiovascular #1: bradycardia Gastrointestinal: soft, no guarding, no rebound, other - Epigastric tenderness to palpation with no guarding or rebound Rectal: deferred Musculoskeletal: normal range of motion 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 On reevaluation at 11 AM patient states that he feels improved. He is declining his CT of the abdomen pelvis. Patient has mild leukocytosis likely secondary to vomiting. After discussing risks and benefits of further diagnostics, treatment plans, as well as indications for and risks of admission, the patient is agreeable to being discharged home. I have explained that their evaluation and treatment in the emergency department today is an important step towards them achieving better health but that their evaluation today is not intended to replace further evaluation and treatment by a physician in their local clinic. I have explained that while the current findings suggest no immediate life threatening emergency they will require further evaluation and treatment by a physician of their choice in their area. They understand that it will be necessary for them to review the final reports of their ED visit with their clinic physician. We have reviewed indications for return to the Emergency Department. I have explained that additional time may need to pass and/or additional testing as an outpatient may be necessary before a definitive diagnosis can be made. They tell me they are willing to follow up as instructed within the timeframe I recommend. They appear to understand what we discussed. Additionally they understand that if they are unable to be seen by an outpatient physician they are welcome, and in fact should, return to the Emergency Department for a repeat evaluation. The patient is stable at time of discharge. Laboratory Tests Test 05/13/20 09:45 05/13/20 10:20 Urine Color Yellow Urine Appearance Clear Urine pH 7 (4.5-8.0) Urine Specific [place] 1.015 (1.005-1.035) Urine Protein 1+ (NEGATIVE) H Urine Glucose (UA) Negative (NEGATIVE) Urine Ketones Negative (NEGATIVE) Urine Blood 2+ (NEGATIVE) H Urine Nitrite Negative (NEGATIVE) Urine Bilirubin Negative (NEGATIVE) Urine Urobilinogen Normal MG/DL (0.0-1.0) Urine Leukocyte Esterase 1+ (NEGATIVE) H Urine RBC 0-2 /HPF (0 - 0) H Urine WBC 2-4 /HPF (0 - 0) Urine Squamous Epithelial Cells Occasional /LPF Urine Amorphous Sediment Few /LPF (NONE) H Urine Bacteria Occasional /HPF (NONE) Urine Opiates Screen Negative (NEGATIVE) Urine Barbiturates Screen Negative (NEGATIVE) Phencyclidine (PCP) Screen Negative (NEGATIVE) Urine Amphetamines Screen Negative (NEGATIVE) Urine Benzodiazepines Screen Negative (NEGATIVE) Urine Cocaine Screen Negative (NEGATIVE) Urine Marijuana (THC) Screen Positive (NEGATIVE) H White Blood Count 13.0 K/UL (4.8-10.8) H Red Blood Count 5.95 M/UL (4.70-6.10) Hemoglobin 15.8 G/DL (14.2-18.0) Hematocrit 57.0 % (42.0-52.0) H Mean Corpuscular Volume 96 FL (80-99) Mean Corpuscular Hemoglobin 26.7 PG (27.0-31.0) L Mean Corpuscular Hemoglobin Concent 27.8 G/DL (32.0-36.0) L Red Cell Distribution Width 13.5 % (11.6-14.8) Platelet Count 290 K/UL (150-450) Mean Platelet Volume 7.9 FL (6.5-10.1) Neutrophils (%) (Auto) 61.2 % (45.0-75.0) Lymphocytes (%) (Auto) 27.4 % (20.0-45.0) Monocytes (%) (Auto) 7.6 % (1.0-10.0) Eosinophils (%) (Auto) 2.8 % (0.0-3.0) Basophils (%) (Auto) 1.0 % (0.0-2.0) Sodium Level 141 MMOL/L (136-145) Potassium Level 3.8 MMOL/L (3.5-5.1) Chloride Level 103 MMOL/L (98-107) Carbon Dioxide Level 29 MMOL/L (21-32) Anion Gap 9 mmol/L (5-15) Blood Urea Nitrogen 12 mg/dL (7-18) Creatinine 1.2 MG/DL (0.55-1.30) Estimated Glomerular Filtration Rate > 60 mL/min (>60) Glucose Level 114 MG/DL (74-106) H Calcium Level 9.2 MG/DL (8.5-10.1) Magnesium Level 1.9 MG/DL (1.8-2.4) Total Bilirubin 0.4 MG/DL (0.2-1.0) Aspartate Amino Transferase (AST) 21 U/L (15-37) Alanine Aminotransferase (ALT) 27 U/L (12-78) Alkaline Phosphatase 49 U/L (46-116) Total Protein 8.1 G/DL (6.4-8.2) Albumin 4.1 G/DL (3.4-5.0) Globulin 4.0 g/dL Albumin/Globulin Ratio 1.0 (1.0-2.7) Lipase 102 U/L (73-393) Rhythm Strip Diag. Results Rhythm Strip Time: 11:00 EP Interpretation: yes - Bernice Kraft MD Rate: 51 bpm Rhythm: no PVC's, no ectopy, other - Sinus bradycardia Last Vital Signs Date Time Temp Pulse Resp B/P (MAP) Pulse Ox O2 Delivery O2 Flow Rate FiO2 05/13/20 10:00 98.1 56 18 146/80 (102) 97 Room Air Disposition: HOME, SELF-CARE Condition: Stable Referrals: [facility] (PCP) Additional Instructions: The patient was provided with discharge instructions, notified to follow-up with a primary care doctor and or specialist in the next 24-48 hours, and to return to the ED if they have worsening of their symptoms. Please note that this report is being documented using [employer] technology. This can lead to erroneous entry secondary to incorrect interpretation by the dictating instrument. Bernice Kraft M.D. May 13, 2020 10:16
[2020-05-13 10:24] LABS: APPEARANCE,URINE CLEAR; BILIRUBIN, URINE NEGATIVE (NEGATIVE); GLUCOSE, URINE (UA) NEGATIVE (NEGATIVE); KETONES,URINE NEGATIVE (NEGATIVE); LEUKOCYTE ESTERASE ,URINE 1+ (NEGATIVE); NITRITE,URINE NEGATIVE (NEGATIVE); PH,URINE 7 (4.5-8.0); PROTEIN,URINE 1+ (NEGATIVE); UROBILINOGEN,URINE NORMAL MG/DL (0.0-1.0)
[2020-05-13 10:25] LABS: COLOR,URINE YELLOW
[2020-05-13 10:28] VITALS: BP 137/78
[2020-05-13 10:34] LABS: EOSINOPHILS % (AUTO) 2.8 % (0.0-3.0); HEMOGLOBIN 15.8 G/DL (14.2-18.0); LYMPHOCYTES % (AUTO) 27.4 % (20.0-45.0); MEAN CORPUSCULAR VOLUME 96 FL (80-99); MONOCYTES % (AUTO) 7.6 % (1.0-10.0); NEUTROPHILS % (AUTO) 61.2 % (45.0-75.0); PLATELET COUNT 290 K/UL (150-450); RED BLOOD COUNT 5.95 M/UL (4.70-6.10); RED CELL DISTRIBUTION WIDTH 13.5 % (11.6-14.8)
[2020-05-13 10:43] LABS: ANION GAP 9 mmol/L (5-15); BLOOD UREA NITROGEN 12 mg/dL (7-18); CALCIUM 9.2 MG/DL (8.5-10.1); CARBON DIOXIDE 29 MMOL/L (21-32); CHLORIDE 103 MMOL/L (98-107); CREATININE 1.2 MG/DL (0.55-1.30); POTASSIUM 3.8 MMOL/L (3.5-5.1); SODIUM 141 MMOL/L (136-145)
--- NOTE | 2020-05-13 10:48 | NUR ---
pt in bed, on continuous cardiac/O2 monitor. IV placed, labs drawn & sent, pt medicated per eMAR. pt refused CT scan
[2020-05-13 10:50] LABS: ALANINE AMINOTRANSFERASE 27 U/L (12-78); ALBUMIN 4.1 G/DL (3.4-5.0); ALKALINE PHOSPHATASE 49 U/L (46-116); ASPARTATE AMINO TRANSFERASE 21 U/L (15-37); BILIRUBIN,TOTAL 0.4 MG/DL (0.2-1.0)
[2020-05-13] MEDS ORDERED: TRAMADOL HCL50 MG ORAL (11:03)
[2020-05-13] MEDS ORDERED: ZOFRAN4 M3 ORAL (11:03)
[2020-05-13] MEDS ORDERED: PROTONIX40 MG ORAL (11:03)
--- NOTE | 2020-05-13 12:21 | NUR ---
pt states here for abd pain, worse in morning, vomiting bile & intermittent throughout day. pt staets he has been eating spicy food. dc with pepcid after last visit, pt states improvement but did not followup with pmd, now pain is worse. pt veralizes understanding of education for abd pain.
--- NOTE | 2020-05-13 12:36 | NUR ---
pt vomiting, updated, pt given medication per eMAR. pt resting in bed. will continue to monitor before discharge.
[2020-05-13 12:37] VITALS: BP 126/69
--- NOTE | 2020-05-13 12:38 | NUR ---
pt bradycardic, MD aware, pt has hx bradycardia. md cleared pt for discharge.
--- NOTE | 2020-05-13 12:56 | NUR ---
ED Nurse Note: Pt cleared by health care Provider for discharge. DC instructions/prescription was given and explained to pt and verbalized understanding of teachings. All medical deviecs such as ID band removed. Pt is AAO x4, ambulatory and left with all personal belongings.
== END 2020-05-13 12:57 | disposition home or self-care (01) ==
LOC: EMR 10:00
DX: K29.70 Gastritis, unspecified, without bleeding (principal); R11.2 Nausea with vomiting, unspecified; R00.1 Bradycardia, unspecified
CPT/HCPCS: 36415; 80053; 80307; 81003; 83690; 83735; 85025; 93005; 96361; 96374; 96375; 96376; J2405; J3010; J7030; S0164; Z7502; 99284